=== PATIENT | male | born 1980 | race Caucasian/White ===

== ENCOUNTER → 2024-06-04 | Outpatient (CLI) | payer OTHER ==
--- NOTE | 2024-06-05 12:42 | XR ---
EXAMINATION TYPE: XR knee complete LT DATE OF EXAM: 06/04/2024 COMPARISON: None HISTORY: 44-year-old male M25.562 PAIN IN LEFT KNEE TECHNIQUE: 3 views FINDINGS: No acute fracture, subluxation, dislocation. There is anterior soft tissue swelling. No knee joint ef fusion. Extensor mechanism appears intact. IMPRESSION: Anterior soft tissue swelling. No acute osseous abnormality seen.
== END | disposition home or self-care (01) ==
LOC: RADXRMAIN 10:01
PROVIDERS: ATTEND Nurse Practitioner Family
DX: M25.562 Pain in left knee (principal); M79.89 Other specified soft tissue disorders